=== PATIENT | male | born 1960 | race Two or more races ===

== ENCOUNTER → 2018-07-26 | Outpatient (CLI) | payer OTHER | END | disposition home or self-care (01) | LOC: RAD 12:18 | DX: R05 Cough (principal); Z00.01 Encounter for general adult medical examination with abnormal findings ==

== ENCOUNTER 2019-05-02 12:33 | Emergency (ER) | payer OTHER ==
[~2019-05-02] VITALS: Ht 185.4 cm; Wt 88.5 kg
[2019-05-02] MEDS ORDERED: LIPITOR20 MG (12:45)
== END 2019-05-02 15:27 | disposition home or self-care (01) ==
LOC: ER 12:33
DX: E86.0 Dehydration (principal)

== ENCOUNTER 2019-05-04 09:11 | Emergency (ER) | payer OTHER ==
[~2019-05-04] VITALS: Ht 185.4 cm; Wt 88.9 kg
[~2019-05-04 09:11] MED LIST: LIPITOR20 MG
[2019-05-04] MEDS ORDERED: LIPITOR40 M1 PO (09:49)
== END 2019-05-04 11:41 | disposition home or self-care (01) ==
LOC: ER 09:11
DX: B33.8 Other specified viral diseases (principal); B96.0 Mycoplasma pneumoniae [M. pneumoniae] as the cause of diseases classified elsewhere